=== PATIENT | male | born 1985 | race African-American/Black ===

== ENCOUNTER 2019-10-04 17:25 | Emergency (ER) | payer SELFPAY ==
[~2019-10-04] VITALS: Ht 188 cm; Wt 80.0 kg
[2019-10-04 17:29] VITALS: BP 130/95
== END 2019-10-04 18:09 | disposition left against medical advice (07) ==
LOC: ER 17:25
DX: Z53.21 Procedure and treatment not carried out due to patient leaving prior to being seen by health care provider (principal)